=== PATIENT | male | born 1995 | race Caucasian/White ===

== ENCOUNTER 2024-09-14 11:10 | Emergency (ER) | payer BC, SELFPAY ==
[2024-09-14 11:13] VITALS: BP 185/116
[2024-09-14 11:43] LABS: Hematocrit 42.9 % (39.0-52.0); Hemoglobin 15.0 g/dL (13.0-18.0); Mean Corp Hgb Conc. 35.0 g/dL (33.0-37.0); Mean Corpuscular Volume 88.8 fL (80.0-94.0); Nucleated Red Blood Cells % 0 % (-); Platelet Count 221 10^3/uL (130-400); Red Cell Dist. Width 12.1 % (11.5-14.5)
[2024-09-14 12:04] LABS: ALT (SGPT) 19 U/L (0-50); AST (SGOT) 21 U/L (17-59); Albumin 4.9 g/dl (3.5-5.0); Alkaline Phosphatase 60 U/L (38-126); Blood Urea Nitrogen 14 mg/dl (9-20); Calcium 9.2 mg/dl (8.4-10.2); Carbon Dioxide 25 mmol/L (22-30); Chloride 109 mmol/L (98-107); Glucose 94 mg/dl (70-99); Lipase 90 U/L (23-300); Potassium 4.1 mmol/L (3.5-5.1); Sodium 141 mmol/L (135-145); Total Protein 7.9 g/dl (6.3-8.2); eGFR > 60.00
[2024-09-14 12:20] LABS: Troponin I < 0.012 ng/ml
[2024-09-14 12:45] VITALS: BP 183/112
[2024-09-14 13:00] VITALS: BP 179/102
--- NOTE | 2024-09-14 13:10 | ED.GENMED ---
History of Present Illness
General
Chief Complaint: Chest Pain
Source: patient
Exam Limitations: none
Time Seen by Provider: 09/14/24 12:45
History of Present Illness
History of Present Illness:
29-year-old male presents complaining of 2 to 3 days worth of pressure on his chest with intermittent sharp pains. No pleuritic component to the discomfort. He has a history of reflux. He recently started intermittent fasting. He feels as though
his reflux might be getting worse. No recent travel or surgery. No leg swelling or calf pain. No or cough. Does have a history of postnasal drip as well.
Phy Exam
Physical Exam
Physical Exam:
General: Well-appearing male no acute respiratory distress
HEENT normocephalic atraumatic
Heart: Regular rate and rhythm
Lungs: Clear no wheeze
Abdomen is soft nontender nondistended no guarding rebound
Extremities: No cyanosis or edema
Scores
Heart Score for Chest Pain Patients
STEMI patient?: No
History: Slightly or Non-Suspicious
ECG: Normal
Age: </= 45 years
Risk Factors: No Risk Factors
Troponin: </= Normal Limit
Heart Score for Chest Pain Patients: 0
Heart Score Risk: 2.5% MACE over next 6 weeks
Course
Orders/Labs/Results
Orders:
Orders
09/14/24 11:17
EKG [Electrocardiogram (*1)] Urgent
Reason for Study: Chest Pain
EKG- Treatment ONCE
09/14/24 11:25
Complete Blood Count/With Diff Urgent
Comprehensive Metabolic Panel Urgent
Lipase Urgent
Troponin I Urgent
09/14/24 13:04
CR Chest - 2 Views Urgent
Comment:
Reason For Exam: chest pain
Abnormal Lab Results
09/14/24
11:25
MCH 31.1 H pg
(27.0-31.0)
Chloride 109 H mmol/L
(98-107)
09/14/24 11:25
09/14/24 11:25
Vital Signs
Initial and Last Documented VS:
Initial Vital Signs
Temp Pulse Resp BP Pulse Ox
98.2 F 67 18 185/116 99
09/14/24 11:13 09/14/24 11:13 09/14/24 11:13 09/14/24 11:13 09/14/24 11:13
Last Documented Vital Signs
Temp Pulse Resp BP Pulse Ox
98.2 F 65 23 135/86 99
09/14/24 11:13 09/14/24 13:45 09/14/24 13:45 09/14/24 14:58 09/14/24 13:12
MDM/Problems Addressed
Differential Diagnosis Includes:
Chest pressure. Consider ACS. No risk factors for PE. Symptoms seem to be intermittent, do not suspect dissection or PE. Question possible reflux. EKG shows sinus rhythm without ischemic changes. Troponin is undetectable. Lipase is normal.
Chest x-ray is pending
*Pulse Oximetry
SaO2: 99
Oxygen Mode of Delivery: Room air
Patient hypoxic: no
*Critical Care Note
Total Time (30-74mins, 75-104mins- exclusive of procedures): Not Applicable
Update Note
Update Note:
Chest x-ray clear. Blood pressure improved on its own to 130s over 80s. No indication for initiation of any antihypertensives to the emergency room. I suspect chest discomfort may be related to GI perhaps reflux. Recommended antacids follow-up
ED Attending Note
-
Portions of this chart may have been created with voice recognition software.� Occasional wrong word or��sound alike� substitutions may have occurred due to the inherent limitations of voice recognition software.
Discharge Plan
Departure
Patient Disposition: Home (Routine Discharge)
Date of Disposition: 09/14/24
Time of Disposition: 14:59
Patient with high blood pressure during this ER visit?: No
Discharge Problem:
Chest pain
Instructions: Acid Reflux and GERD in Adults (DC), Chest Pain PCP Follow Up
Referrals:
Ambika Benitez DO [Family Provider, Internal Medicine]
Activity Restrictions/Additional Instructions:
Return here for worsening symptoms. Consider antacids. Follow-up with your doctor otherwise
Interventions
Interventions:
*Risk Screen - Suicide Last Done: 09/14/24 11:15
*General Assessment Last Done: 09/14/24 11:15
*Neglect/Abuse Screening Last Done: 09/14/24 13:07
*ED- Fall Risk Assessment Last Done: 09/14/24 13:07
*ED COVID-19 Vaccine History Last Done: 09/14/24 11:15
ED- Cardiac Assessment Last Done: 09/14/24 13:06
Discharge Date and Time
Print Language: THAI
[2024-09-14 13:30] VITALS: BP 154/106
[2024-09-14 14:57] VITALS: BP 147/92
[2024-09-14 14:58] VITALS: BP 135/86
== END 2024-09-14 15:31 | disposition home or self-care (01) ==
LOC: EMR 11:10
PROVIDERS: Emergency Medicine; EMERGENCY PHYSICIAN Emergency Medicine; FAMILY PHYSICIAN Internal Medicine
DX: R07.89 Other chest pain (principal); K21.9 Gastro-esophageal reflux disease without esophagitis
CPT/HCPCS: 99283; 71046; 80053; 83690; 84484; 85025; 93005